=== PATIENT | male | born 1995 | race Caucasian/White ===

== ENCOUNTER 2017-02-27 00:08 | Emergency (ER) | payer SELFPAY | END 2017-02-27 00:52 | LOC: BURERS 00:08 | DX: S01.81XA Laceration without foreign body of other part of head, initial encounter (principal); F10.129 Alcohol abuse with intoxication, unspecified; J45.909 Unspecified asthma, uncomplicated; W22.8XXA Striking against or struck by other objects, initial encounter | CPT/HCPCS: 12013 ==